=== PATIENT | female | born 1985 | race Caucasian/White ===

== ENCOUNTER 2018-11-03 15:12 | Emergency (ER) | payer OTHER ==
[~2018-11-03] VITALS: Ht 170.2 cm; Wt 81.8 kg
[~2018-11-03 15:12] MED LIST: OXYC-158 PO
[2018-11-03] MEDS ORDERED: MIRENA IUD VG (15:41)
[2018-11-03] MEDS ORDERED: KETOROLAC TROMETHAMINE 30 MG/ML VIAL IVP ONE (16:30)
[2018-11-03] MEDS ORDERED: LORazepam 2 MG/ML VIAL IVP ONE ×2 (16:30→18:45)
[2018-11-03 18:54] LABS: BASOPHILS % (AUTO) 0.4 % (0.0-2.0); EOSINOPHILS % (AUTO) 0 % (1.0-6.0); HEMATOCRIT 39.7 % (36-46); HEMOGLOBIN 13.6 g/dL (12.0-16.0); LYMPHOCYTES # (AUTO) 2.1 K/uL (1.0-4.8); LYMPHOCYTES % (AUTO) 22.1 % (22.0-44.0); MEAN CORPUSCULAR HEMOGLOBIN 30.3 pg (26.0-34.0); MEAN CORPUSCULAR HGB CONC 34.3 G/dL (31.0-37.0); MEAN CORPUSCULAR VOLUME 88 fL (80-100); MONOCYTES # (AUTO) 0.5 K/uL (0.1-1.0); MONOCYTES % (AUTO) 4.7 % (2.0-9.0); NEUTROPHILS % (AUTO) 72.8 % (40.0-70.0); PLATELET COUNT (AUTO) 334 K/uL (150-450); RED CELL DISTRIBUTION WIDTH 13.2 % (11.5-14.5)
[2018-11-03 19:25] LABS: ANION GAP 15 mmol/L (8-16); CALCIUM, TOTAL 9.4 mg/dL (8.8-10.5); CARBON DIOXIDE 20 mmol/L (22-29); CHLORIDE 105 mmol/L (98-107); CREATININE 0.94 mg/dL (0.60-1.30); GLOMERULAR FILTR. RATE CALC > 60 mL/min (>60); GLUCOSE,RANDOM 106 mg/dL (70-110); POTASSIUM 3.9 mmol/L (3.5-5.1); SODIUM SERUM 140 mmol/L (136-145); UREA NITROGEN, BLOOD 12 mg/dL (7-18)
[2018-11-03 19:40] LABS: ALANINE AMINOTRANSFERASE 134 U/L (12-78); ALKALINE PHOSPHATASE 75 U/L (46-116); ASPARTATE AMINOTRANSFERASE 404 U/L (15-37); BILIRUBIN,TOTAL 0.4 mg/dL (0.1-1.0); TOTAL PROTEIN, SERUM 7.9 g/dL (6.4-8.2)
[2018-11-03 20:10] LABS: CREATINE KINASE, TOTAL ONLY 44108 U/L (26-192)
[2018-11-03 21:14] VITALS: BP 127/53
== END 2018-11-03 21:42 | disposition home or self-care (01) ==
LOC: EMS 15:15
DX: F15.10 Other stimulant abuse, uncomplicated (principal); M62.830 Muscle spasm of back; F17.210 Nicotine dependence, cigarettes, uncomplicated
CPT/HCPCS: 36415; 71045; 80053; 82550; 84484; 85025; 96374; 96375; 96376; 99285; J1885; J2060

== ENCOUNTER 2021-04-29 13:53 | Emergency (ER) | payer OTHER ==
[~2021-04-29] VITALS: Ht 160 cm; Wt 65.9 kg
[~2021-04-29 13:53] MED LIST changes: +MIRENA IUD VG; -OXYC-158 PO
[2021-04-29] MEDS ORDERED: KETOROLAC TROMETHAMINE 30 MG/ML VIAL IM ONE (14:45)
[2021-04-29] MEDS ORDERED: LIDOCAINE 5% TRANSDERMAL PATCH TD ONE (14:45)
[2021-04-29] MEDS ORDERED: CYCLOBENZAPRINE HCL 10 MG TABLET PO ONE (14:45)
[2021-04-29] MEDS ORDERED: LORazepam 2 MG/ML VIAL IM ONE (16:30)
[2021-04-29] MEDS ORDERED: TraMADol HCL 50 MG TABLET PO ONE (18:00)
[2021-04-29 18:17] VITALS: BP 137/80
== END 2021-04-29 18:45 | disposition home or self-care (01) ==
LOC: EMS 13:53
DX: M43.6 Torticollis (principal); F15.10 Other stimulant abuse, uncomplicated; F17.210 Nicotine dependence, cigarettes, uncomplicated
CPT/HCPCS: 96372; 99285; J1885; J2060

== ENCOUNTER 2021-07-20 18:48 | Emergency (ER) | payer OTHER ==
[~2021-07-20] VITALS: Ht 157.5 cm; Wt 79.5 kg
[2021-07-20 20:34] LABS: BASOPHILS % (AUTO) 0.4 % (0.0-2.0); EOSINOPHILS % (AUTO) 0.3 % (1.0-6.0); HEMATOCRIT 38.4 % (36-46); HEMOGLOBIN 13.2 g/dL (12.0-16.0); LYMPHOCYTES # (AUTO) 3.1 K/uL (1.0-4.8); LYMPHOCYTES % (AUTO) 31.7 % (22.0-44.0); MEAN CORPUSCULAR HEMOGLOBIN 30.5 pg (26.0-34.0); MEAN CORPUSCULAR HGB CONC 34.4 G/dL (31.0-37.0); MEAN CORPUSCULAR VOLUME 89 fL (80-100); MONOCYTES # (AUTO) 0.6 K/uL (0.1-1.0); MONOCYTES % (AUTO) 5.9 % (2.0-9.0); NEUTROPHILS % (AUTO) 61.7 % (40.0-70.0); PLATELET COUNT (AUTO) 359 K/uL (150-450); RED BLOOD CELL COUNT(AUTO) 4.34 MIL/uL (4.00-5.20); RED CELL DISTRIBUTION WIDTH 12.8 % (11.5-14.5)
[2021-07-20 20:41] LABS: ANION GAP 17 mmol/L (8-16); CALCIUM, TOTAL 9.8 mg/dL (8.8-10.5); CARBON DIOXIDE 21 mmol/L (22-29); CHLORIDE 103 mmol/L (98-107); CREATININE 1.05 mg/dL (0.60-1.30); GLOMERULAR FILTR. RATE CALC 59 mL/min (>60); GLUCOSE,RANDOM 100 mg/dL (70-110); POTASSIUM 3.6 mmol/L (3.5-5.1); SODIUM SERUM 141 mmol/L (136-145); UREA NITROGEN, BLOOD 17 mg/dL (7-18)
[2021-07-20 20:47] LABS: ALANINE AMINOTRANSFERASE 16 U/L (12-78); ALBUMIN 3.8 g/dL (3.4-5.0); ALKALINE PHOSPHATASE 75 U/L (46-116); ASPARTATE AMINOTRANSFERASE 14 U/L (15-37); BILIRUBIN,TOTAL 0.3 mg/dL (0.1-1.0); TOTAL PROTEIN, SERUM 8.2 g/dL (6.4-8.2)
[2021-07-20] MEDS ORDERED: LIDOCAINE 5% TRANSDERMAL PATCH TD ONE (21:45)
[2021-07-20] MEDS ORDERED: KETOROLAC TROMETHAMINE 60 MG/2 ML VIAL IM ONE (21:45)
[2021-07-20] MEDS ORDERED: TraMADol HCL 50 MG TABLET PO ONE (21:45)
[2021-07-20] MEDS ORDERED: CYCLOBENZAPRINE HCL 10 MG TABLET PO ONE (21:45)
[2021-07-21] VITALS: BP 133/90
== END 2021-07-21 01:15 | disposition home or self-care (01) ==
LOC: EMS 18:51
DX: M62.838 Other muscle spasm (principal); F15.90 Other stimulant use, unspecified, uncomplicated; F17.210 Nicotine dependence, cigarettes, uncomplicated
CPT/HCPCS: 36415; 80053; 84703; 85025; 96372; 99284; G0480; J1885

== ENCOUNTER 2024-05-21 13:23 | Emergency (ER) | payer OTHER ==
[~2024-05-21] VITALS: Ht 160 cm; Wt 91.0 kg
[2024-05-21 14:01] VITALS: BP 164/107; PULSE 96; RESP 16; TEMP 98.1; O2SAT 100
[2024-05-21] MEDS: KETOROLAC TROMETHAMINE 30 MG/ML VIAL IM ONE (14:38)
[2024-05-21] MEDS: LIDOCAINE 5% TRANSDERMAL PATCH TD ONE (14:39)
[2024-05-21] MEDS: ACETAMINOPHEN 500 MG TABLET PO ONE (14:39)
[2024-05-21] MEDS: DIAZEPAM 5 MG TABLET PO ONE (14:39)
[2024-05-21] MEDS ORDERED: DIAZ-328 PO (16:29)
[2024-05-21] MEDS: OxyCODONE HCL 5 MG IR TABLET PO ONE (16:34)
== END 2024-05-21 16:49 | disposition home or self-care (01) ==
LOC: EMS 13:23
DX: M62.838 Other muscle spasm (principal); G89.29 Other chronic pain; M54.50 Low back pain, unspecified; F17.210 Nicotine dependence, cigarettes, uncomplicated; F15.90 Other stimulant use, unspecified, uncomplicated
CPT/HCPCS: 99284; 96372; J1885